=== PATIENT | male | born 1975 | race Caucasian/White ===

== ENCOUNTER 2017-04-16 13:55 | Emergency (ER) | payer SELFPAY ==
[~2017-04-16] VITALS: Ht 195.6 cm; Wt 113.7 kg
[~2017-04-16 13:55] MED LIST: ADVIL,NUPRIN,M200 MG PO; Aspirin PO; Ativan PO; CELEXA10 MG PO; CELEXA40 MG PO; CITALOPRAM HBR20 MG PO; CLONAZEPAM0.5 MG PO; COLACE100 MG PO; COUMADIN1 MG PO; COUMADIN10 MG PO; Coumadin,Jantoven PO; ENOXAPARIN150 MG/1 M SC; FLEXERIL10 MG PO; HYDROCODON-ACE1 EAC7 PO; KLONOPIN0.5 M1 PO; KlonoPIN PO; LORTAB 7.5/51 TABLET PO; NOHOMEMEDS; NORCO 5/3251 TABLET PO; OxyCODONE PO; PREDNISONE10 MG PO; PREDNISONE20 MG PO; Senokot,Sennagen PO; TYLENOL ARTHRI650 MG PO; TYLENOL EXTRA500 MG PO; TYLENOL WITH C1 EACH PO; ULTRAM50 MG PO; VENTOLIN HFA18 GM IH; WARFARIN SODIUM1 MG PO; ZITHROMAX Z-PA250 MG PO; celeXA PO; oxyCODONE PO
[2017-04-16] MEDS ORDERED: VIGAMOX 0.60 DROP/3 RIGHT EYE (17:33)
[2017-04-16] MEDS ORDERED: XARELTO15 MG PO (17:33)
[2017-04-16 17:51] VITALS: BP 125/81
== END 2017-04-16 17:52 | disposition home or self-care (01) ==
LOC: EME 13:55
DX: I82.431 Acute embolism and thrombosis of right popliteal vein (principal); I82.441 Acute embolism and thrombosis of right tibial vein; I82.491 Acute embolism and thrombosis of other specified deep vein of right lower extremity; Z86.718 Personal history of other venous thrombosis and embolism; S05.01XA Injury of conjunctiva and corneal abrasion without foreign body, right eye, initial encounter; F17.200 Nicotine dependence, unspecified, uncomplicated; Z86.711 Personal history of pulmonary embolism; Z91.19 Patient's noncompliance with other medical treatment and regimen
CPT/HCPCS: 80048; 81240 90; 83090 90; 85240 90; 85300 90; 85303 90; 85305 90; 85306 90; 85307 90; 85613 90; 85730 90; 86146 90; 86147 90; 93971; 99281; 99282

== ENCOUNTER 2018-01-24 20:40 | Inpatient (IN) | payer BC ==
[~2018-01-24] VITALS: Ht 195.6 cm; Wt 116.8 kg
[~2018-01-24 20:40] MED LIST changes: +VIGAMOX 0.60 DROP/3 RIGHT EYE; +XARELTO15 MG PO
[2018-01-24 21:06] LABS: HEMATOCRIT 38.3 % (38.0-50.0); HEMOGLOBIN 13.1 G/DL (12.5-16.6); MCH 29.7 PG (29.0-34.0); MCHC 34.2 G/DL (30.0-36.0); MCV 86.8 FL (86-99); RBC DIS.WIDTH-CV 14.2 % (11.8-14.6); RBC DIS.WIDTH-SD 45.8 % (39-53); RED BLOOD COUNT 4.41 M/uL (4.00-5.50); WHITE BLOOD COUNT 8.6 K/uL (4.1-10.2)
[2018-01-24 21:15] LABS: CHLORIDE 107 mEq/L (99-109); POTASSIUM 3.8 mEq/L (3.7-5.4); SODIUM 140 mEq/L (136-147)
[2018-01-24 21:17] LABS: GLUCOSE 116 mg/dL (70-99)
[2018-01-24 21:21] LABS: CREATININE 0.8 mg/dL (0.6-1.3); GFR ESTIMATE (CALCULATED) > 59 mL/min/ (58.99-99999)
[2018-01-24 21:22] LABS: UREA NITROGEN (BUN) 14 mg/dL (9-23)
[2018-01-24 21:28] LABS: TROP-I INTERPRETATION NEGATIVE; TROPONIN-I < 0.01 ng/mL (0.0-0.30)
[2018-01-24 21:51] LABS: PTT 26.7 SEC (25-37)
[2018-01-24 22:05] LABS: PLAT.SUFFICIENCY ADEQUATE; PLATELET COUNT 202 K/uL (156-360)
[2018-01-24 22:33] LABS: INTER. NORMALIZED RATIO 1.1
[2018-01-24] MEDS ORDERED: OXYCODONE HCL15 MG PO (23:46)
[2018-01-25 00:07] LABS: TROP-I INTERPRETATION NEGATIVE; TROPONIN-I < 0.01 ng/mL (0.0-0.30)
[2018-01-25] MEDS ORDERED: XARELTO1 EACH PO (00:09)
[2018-01-25 04:18] VITALS: BP 108/63
== END 2018-01-25 00:28 | disposition left against medical advice (07) | DRG 176 ==
LOC: EME 20:40 → EDOF 23:47 → ENRESERV 23:48 → EDOF 01-25 00:28 → ENRESERV 01-25 00:59 → CANRESERV 01-25 00:59
PROVIDERS: Emergency Medicine; Physician Assistant
DX: I26.99 Other pulmonary embolism without acute cor pulmonale (principal); R04.2 Hemoptysis; J43.9 Emphysema, unspecified; F17.200 Nicotine dependence, unspecified, uncomplicated; Z86.711 Personal history of pulmonary embolism; Z86.718 Personal history of other venous thrombosis and embolism; Z91.14 Patient's other noncompliance with medication regimen; Z91.19 Patient's noncompliance with other medical treatment and regimen
CPT/HCPCS: 71046; 71275; 80048; 84484; 85027; 85379; 85610; 85730; 93005; 99281; 99285

== ENCOUNTER 2018-01-27 21:57 | Inpatient (IN) | payer BC ==
[~2018-01-27] VITALS: Ht 195.6 cm; Wt 118.7 kg
[~2018-01-27 21:57] MED LIST changes: +OXYCODONE HCL15 MG PO; +XARELTO1 EACH PO
[2018-01-27 23:06] LABS: HEMATOCRIT 36.9 % (38.0-50.0); HEMOGLOBIN 12.6 G/DL (12.5-16.6); MCH 29.9 PG (29.0-34.0); MCHC 34.1 G/DL (30.0-36.0); MCV 87.4 FL (86-99); PLATELET COUNT 232 K/uL (156-360); RBC DIS.WIDTH-CV 14.3 % (11.8-14.6); RBC DIS.WIDTH-SD 45.6 % (39-53); RED BLOOD COUNT 4.22 M/uL (4.00-5.50); WHITE BLOOD COUNT 8.6 K/uL (4.1-10.2)
[2018-01-27 23:16] LABS: CHLORIDE 105 mEq/L (99-109); POTASSIUM 3.8 mEq/L (3.7-5.4); SODIUM 142 mEq/L (136-147)
[2018-01-27 23:18] LABS: GLUCOSE 93 mg/dL (70-99)
[2018-01-27 23:21] LABS: GFR ESTIMATE (CALCULATED) > 59 mL/min/ (58.99-99999)
[2018-01-27 23:22] LABS: UREA NITROGEN (BUN) 15 mg/dL (9-23)
[2018-01-27 23:23] LABS: INTER. NORMALIZED RATIO 1.5
[2018-01-27 23:25] LABS: PTT 34.1 SEC (25-37)
[2018-01-28 00:02] LABS: TROP-I INTERPRETATION NEGATIVE; TROPONIN-I < 0.01 ng/mL (0.0-0.30)
[2018-01-28 03:41] LABS: INTER. NORMALIZED RATIO 1.2
[2018-01-28 03:43] LABS: PTT 32.5 SEC (25-37)
[2018-01-28 04:28] VITALS: BP 127/60
[2018-01-28 04:29] LABS: SERUM ETHYL ALCOHOL < 10 mg/dL
[2018-01-28 07:23] VITALS: BP 127/70
[2018-01-28 10:08] LABS: APPEARANCE CLEAR ((CLEAR)); BILIRUBIN NEGATIVE; BLOOD NEGATIVE; COLOR YELLOW ((YELLOW)); GLUCOSE (STRIP) NEGATIVE; KETONES NEGATIVE; LEUKOCYTES NEGATIVE; NITRITE NEGATIVE; PROTEIN (STRIP) NEGATIVE; SPECIFIC GRAVITY 1.046 (1.000-1.030); UCUL ADDED? NO; UROBILINOGEN 0.2 MG/DL (0.2-1.0)
[2018-01-28 10:22] LABS: INTER. NORMALIZED RATIO 1.1
[2018-01-28 10:24] LABS: PTT 36.7 SEC (25-37)
[2018-01-28 10:44] LABS: BENZODIAZEPINES, URINE SCREEN Negative (200 ng/mL)
[2018-01-28 11:35] VITALS: BP 110/64
[2018-01-28 14:53] LABS: HEMATOCRIT 35.5 % (38.0-50.0); HEMOGLOBIN 11.8 G/DL (12.5-16.6); MCH 29.4 PG (29.0-34.0); MCHC 33.2 G/DL (30.0-36.0); MCV 88.3 FL (86-99); PLATELET COUNT 211 K/uL (156-360); RBC DIS.WIDTH-CV 14.4 % (11.8-14.6); RBC DIS.WIDTH-SD 46.5 % (39-53); RED BLOOD COUNT 4.02 M/uL (4.00-5.50)
[2018-01-28 15:53] VITALS: BP 131/60
[2018-01-28 20:15] VITALS: BP 134/67
[2018-01-29 00:32] VITALS: BP 123/66
[2018-01-29 03:29] VITALS: BP 128/69
[2018-01-29 06:11] LABS: BASOPHIL (%) 0.6 % (0-1); EOSINOPHIL (%) 1.8 % (0-5); EOSINOPHIL COUNT 0.1 K/uL (0-0.3); HEMATOCRIT 37.2 % (38.0-50.0); HEMOGLOBIN 12.2 G/DL (12.5-16.6); IMMATURE GRANULOCYTE (%) 0.2 % (0.0-0.7); LYMPHOCYTE (%) 35.8 % (15-42); LYMPHOCYTE COUNT 2.3 K/uL (1.0-2.8); MCHC 32.8 G/DL (30.0-36.0); MCV 88.4 FL (86-99); MONOCYTE (%) 8.2 % (3-12); MONOCYTE COUNT 0.5 K/uL (0-0.8); NEUTROPHIL (%) 53.4 % (45-76); NEUTROPHIL COUNT 3.5 K/uL (1.8-6.4); PLATELET COUNT 220 K/uL (156-360); RBC DIS.WIDTH-CV 14.1 % (11.8-14.6); RBC DIS.WIDTH-SD 45.7 % (39-53); RED BLOOD COUNT 4.21 M/uL (4.00-5.50); WHITE BLOOD COUNT 6.5 K/uL (4.1-10.2)
[2018-01-29 07:04] VITALS: BP 129/75
[2018-01-29 11:15] VITALS: BP 126/66
[2018-01-29] MEDS ORDERED: ENDOCET 5-3251 EACH PO (14:20)
[2018-01-29] MEDS ORDERED: ELIQUIS5 MG PO (14:24)
[2018-01-29] MEDS ORDERED: TYLENOL REGULA325 MG PO (14:24)
[2018-01-29] MEDS ORDERED: COLACE 2-IN-11 EACH PO (14:25)
== END 2018-01-29 14:45 | disposition home or self-care (01) | DRG 176 ==
LOC: RME 21:57 → EME 21:57 → EDOF 01-28 02:37 → 5SOUTH 01-28 02:37 → ENRESERV 01-28 02:40 → 5SOUTH 01-28 03:41
PROVIDERS: Hospitalist; Physician Assistant; Physician Assistant Medical; Student in an Organized Health Care Education/Training Program
DX: I26.99 Other pulmonary embolism without acute cor pulmonale (principal); I36.1 Nonrheumatic tricuspid (valve) insufficiency; I27.20 Pulmonary hypertension, unspecified; F10.20 Alcohol dependence, uncomplicated; I77.819 Aortic ectasia, unspecified site; G89.29 Other chronic pain; M54.9 Dorsalgia, unspecified; F17.200 Nicotine dependence, unspecified, uncomplicated; F12.90 Cannabis use, unspecified, uncomplicated; Z91.14 Patient's other noncompliance with medication regimen; Z86.711 Personal history of pulmonary embolism; Z86.718 Personal history of other venous thrombosis and embolism; Z86.72 Personal history of thrombophlebitis; Z79.01 Long term (current) use of anticoagulants; Z87.81 Personal history of (healed) traumatic fracture
CPT/HCPCS: 71275; 80048; 80306 90; 81003; 82948; 83735; 84484; 85025; 85027; 85610; 85730; 93005; 93306; 99281; 99285; G0480; J3010; J7030